=== PATIENT | male | born 1945 | race Hispanic/Latino ===

== ENCOUNTER 2017-03-17 06:41 | Day surgery (SDC) | payer MEDICARE, OTHER ==
[2017-03-17] MEDS ORDERED: NACL 0.9% 500 ML 500 ML IV SCH (08:00)
[2017-03-17 08:13] LABS: Basophils % (Auto) 0.5 % (0.0-1.8); Eosinophils % (Auto) 5.2 % (0.0-4.3); Hematocrit 40.8 % (35.5-45.6); Hemoglobin 13.9 gm/dl (11.8-15.2); Mean Corpuscular HGB Conc 34 % (32-34); Mean Corpuscular Hemoglobin 31 pg (28-32); Mean Corpuscular Volume 91 fl (84-94); Platelet Count 144 K/mm3 (140-440); Red Blood Count 4.49 M/mm3 (3.65-5.03); Red Cell Distribution Width 13.3 % (13.2-15.2); White Blood Count 5.9 K/mm3 (4.5-11.0)
[2017-03-17 08:23] LABS: Anion Gap 16 mmol/L; BUN/Creatinine Ratio 14; Blood Urea Nitrogen 10 mg/dL (9-20); Calcium 8.4 mg/dL (8.4-10.2); Carbon Dioxide 28 mmol/L (22-30); Chloride 105.5 mmol/L (98-107); Glucose 113 mg/dL (75-100); Potassium 4.8 mmol/L (3.6-5.0); Sodium 145 mmol/L (137-145)
[2017-03-17 08:26] LABS: INR 0.98 (0.87-1.13)
[2017-03-17] MEDS ORDERED: VERSED ONE (09:34)
[2017-03-17] MEDS ORDERED: HEPARIN 10,000 UNITS/10 ML ONE (09:34)
[2017-03-17] MEDS ORDERED: XYLOCAINE 2% INFILTRATI ONE (09:34)
[2017-03-17] MEDS ORDERED: SUBLIMAZE ONE (09:34)
[2017-03-17] MEDS ORDERED: HEPARIN/NS 5000 UNIT/500ML(CATH LAB) 1,000 ML IR ONE (09:34)
[2017-03-17] MEDS ORDERED: NITROGLYCERIN SYRINGE 0 ML ONE (09:48)
--- NOTE | 2017-03-17 10:42 | Discharge Summary ---
Short Stay Discharge Plan Activity: advance as tolerated Weight Bearing Status: Partial Weight Bearing Diet: low fat, low cholesterol, low salt Wound: keep clean and dry Special Instructions: no heavy lifting (3 days) Follow up with: KAM SANTIZO MD [Primary Care Provider] - 7 Days KEV GREEN MD [Staff Physician] - 7 Days
--- NOTE | 2017-03-17 10:53 | Cardiac Catherization Report ---
NAME OF PROCEDURE: Cardiac catheterization. REASON FOR PROCEDURE: Abnormal exercise ECG test. INDICATIONS: The patient is a 71-year-old man with coronary artery disease. In 2010, he underwent coronary stenting of the mid LAD. Following that, serial cardiac catheterizations in 2012 and again in 2014 demonstrated wide patency of the LAD stent. On the 2015 procedure, he received an additional stent placed to the proximal segment of a small-caliber diagonal branch of the LAD. PROCEDURE IN DETAIL: The patient was prepped and draped in a sterile fashion after informed consent. Right femoral artery was entered using Seldinger technique followed by placement of a 6-Congolese sheath. Selective left and right coronary angiography was performed using #4 right and left Tri catheters. A pigtail catheter was used for left ventricle angiography. The catheters were removed, sheath removed, and hemostasis achieved using Angio-Seal device. The patient was returned to the postprocedure unit in stable condition. There were no complications. FINDINGS: HEMODYNAMICS: Left ventricular end-diastolic pressure was 15, following coronary angiography. Ascending aortic pressure was 138/69. There was no significant pressure gradient on pullback across the aortic valve. CORONARY ANGIOGRAPHY: The left main coronary artery was angiographically normal. A stent was visible in the mid left anterior descending artery. The stented segment was widely patent with no significant restenosis. The rest of the main LAD trunk was free of significant disease. A small caliber, proximal diagonal branch of the LAD contained a stent in its proximal segment. This diagonal stent contained mild restenosis within the mid stent. Otherwise, there was diffuse mild atherosclerosis of the nonstented segments of this small-caliber diagonal branch. The proximal and mid AV groove circumflex contained mild luminal irregularities. The mid obtuse marginal branch then bifurcated into two terminal obtuse marginal branches. The inferior sub-branch contained a long 50% stenosis. The right coronary artery was dominant. This vessel contained mild narrowing in its distal AV groove segment midway between the acute margin and the posterior descending branch. The left ventricle was moderately dilated. There is moderate left ventricular systolic dysfunction, diffuse hypokinesis. Left ventricular ejection fraction estimated at 35-40%. CONCLUSION: 1. Coronary artery disease as above. 2. Widely patent mid left anterior descending artery stent. 3. Patent diagonal branch stent, with mild in-stent restenosis. 4. Otherwise, mild to moderate nonobstructive disease in the nonstented segments. 5. Moderate left ventricular systolic dysfunction, ejection fraction of 35-40%. RECOMMENDATION: 1. Medical therapy. 2. Aggressive risk factor modification. JOB# [id number] CA/NTS
[2017-03-17] MEDS ORDERED: NACL 0.9% 1000 ML 1,000 ML IV SCH (11:00)
[2017-03-17 13:35] VITALS: BP 135/74
== END 2017-03-17 14:25 | disposition home or self-care (01) ==
LOC: CATHLABREC 06:41 → CR 06:41 → CATHLABREC 14:25
PROVIDERS: ATTEND Internal Medicine Cardiovascular Disease
DX: I25.118 Atherosclerotic heart disease of native coronary artery with other forms of angina pectoris (principal); I10 Essential (primary) hypertension; K21.9 Gastro-esophageal reflux disease without esophagitis; M19.90 Unspecified osteoarthritis, unspecified site; G47.33 Obstructive sleep apnea (adult) (pediatric); Z79.01 Long term (current) use of anticoagulants; Z79.899 Other long term (current) drug therapy; Z79.82 Long term (current) use of aspirin; Z95.5 Presence of coronary angioplasty implant and graft; Z98.890 Other specified postprocedural states
CPT/HCPCS: 36415; 80048; 85025; 85610; 85730; 93005; 93010; 93458; 99156; 99157; C1760; C1894; J1644; J2250; J3010; J7040; Q9967

== ENCOUNTER 2020-06-26 07:17 | Day surgery (SDC) | payer MEDICARE, OTHER ==
[2020-06-26] MEDS ORDERED: ASPIRIN EC 325 MG TAB PO SCH (08:00)
[2020-06-26] MEDS ORDERED: CLOPIDOGREL 75 MG TAB ONE (08:32)
[2020-06-26 08:44] LABS: Basophils % (Auto) 0.6 % (0.0-1.8); Eosinophils # (Auto) 0.3 K/mm3 (0.0-0.4); Eosinophils % (Auto) 5.9 % (0.0-4.3); Hematocrit 42.2 % (35.5-45.6); Hemoglobin 14.2 gm/dl (11.8-15.2); Lymphocytes # (Auto) 1.6 K/mm3 (1.2-5.4); Lymphocytes % (Auto) 27.9 % (13.4-35.0); Mean Corpuscular HGB Conc 34 % (32-34); Mean Corpuscular Volume 92 fl (84-94); Monocytes # (Auto) 0.6 K/mm3 (0.0-0.8); Monocytes % (Auto) 10.6 % (0.0-7.3); Platelet Count 159 K/mm3 (140-440); Red Blood Count 4.58 M/mm3 (3.65-5.03); Red Cell Distribution Width 13.3 % (13.2-15.2)
[2020-06-26 08:52] LABS: BUN/Creatinine Ratio 20; Blood Urea Nitrogen 16 mg/dL (9-20); Calcium 8.5 mg/dL (8.4-10.2); Hemolysis Index 8
[2020-06-26 08:54] LABS: INR 0.91 (0.87-1.13)
[2020-06-26] MEDS ORDERED: SODIUM CHLORIDE 0.9% 500 ML 500 ML IV SCH (09:00)
[2020-06-26] MEDS ORDERED: CLOPIDOGREL 75 MG TAB PO SCH (09:00)
[2020-06-26] MEDS ORDERED: HEPARIN/NS 5000 UNIT/500ML 1,000 ML IR ONE (10:37)
[2020-06-26] MEDS ORDERED: fentaNYL 100 MCG/2 ML INJ ONE (10:38)
[2020-06-26] MEDS: HEPARIN 10,000 UNITS/10 ML VIAL ONE ×2 (10:59→11:30)
[2020-06-26] MEDS: LIDOCAINE (2%) 20 MG/1 ML VIAL 20 ML MDV INFILTRATI ONE ×2 (11:00→11:29)
[2020-06-26] MEDS: VERAPAMIL 5 MG/2 ML INJ ONE ×2 (11:00→11:30)
[2020-06-26] MEDS: MIDAZOLAM 2 MG/2 ML INJ ONE ×2 (11:00→11:26)
[2020-06-26] MEDS: NITROGLYCERIN SYRINGE 3 ML ONE ×2 (11:01→11:30)
[2020-06-26] MEDS ORDERED: traMADol 50 MG TAB PO PRN (12:03)
--- NOTE | 2020-06-26 12:08 | Discharge Summary ---
Short Stay Discharge Plan Activity: advance as tolerated Weight Bearing Status: Full Weight Bearing Diet: low cholesterol, low salt, diabetic Wound: keep clean and dry Special Instructions: no heavy lifting (3 days) Follow up with: KAM SANTIZO MD [Primary Care Provider] - 7 Days KEV GREEN MD [Staff Physician] - 7 Days
[2020-06-26] MEDS ORDERED: SODIUM CHLORIDE 0.9% 1000 ML 1,000 ML IV SCH (12:15)
--- NOTE | 2020-06-26 12:42 | Cardiac Catherization Report ---
CARDIAC CATHETERIZATION REPORT REASON FOR PROCEDURE: Abnormal thallium stress test. PROCEDURES PERFORMED: 1. Left heart catheterization. 2. Selective left and right coronary angiography. 3. Left ventricular angiography. 4. Sedation time, start 1126 hours, end 1141 hours. I was present for the entire procedure and supervised the moderate sedation protocol. The patient was prepped and draped in a sterile fashion after informed consent. The right radial cath site was prepped and draped after a negative Slick's test. The right radial artery was entered using Seldinger technique, followed by placement of a 6-[place] hydrophilic sheath. Routine radial cocktail was administered via the sheath. Selective left and right coronary angiography was performed using a #3.5 left Tri, and a #4 right Tri. The pigtail catheter was used for left ventricular angiography. The catheters were removed, sheath removed, and hemostasis achieved using a TR band. The patient was returned to the postprocedure unit in stable condition. There were no complications. FINDINGS: HEMODYNAMICS: Left ventricular end-diastolic pressure was 25, following coronary angiography. Ascending aortic pressure was 127/51. There was no significant pressure gradient on pullback across the aortic valve. CORONARY ANGIOGRAPHY: The left main coronary artery was angiographically normal. A stent was visible in the mid left anterior descending artery, after the origin of a medium to large mid diagonal branch. The mid LAD stent was widely patent, with minimal to no significant in-stent restenosis. The mid diagonal branch itself also contained a stent that was visible in its proximal segment. The diagonal branch stent contained mild restenosis with a 20% luminal mid narrowing, but otherwise patent. The LAD and diagonal branch otherwise contained diffuse mild atherosclerosis in the non-stented segments. The mid obtuse marginal branch of the circumflex artery was a large bifurcating vessel. The superior sub-branch contained a 20-30% luminal stenosis of its proximal segment. The inferior sub-branch contained a 30-50% stenosis of its proximal to mid segment. The rest of the circumflex system was otherwise free of significant disease. The right coronary artery was a large caliber, dominant vessel and free of significant disease. Left ventricular systolic function was at lower limits of normal with ejection fraction 50-55%. CONCLUSION: 1. Widely patent mid LAD stent. 2. Patent mid diagonal branch stent. 3. Otherwise, diffuse nonobstructive disease of the mid diagonal branch and mid obtuse marginal branch. 4. Well-preserved left ventricular systolic function with ejection fraction 50-55%. RECOMMENDATION: Risk factor modification and guideline-directed medical therapy. JOB# [id number] TAVIA/NTS
[2020-06-26 14:50] VITALS: BP 105/58
== END 2020-06-26 07:18 | disposition home or self-care (01) ==
LOC: CATHLABREC 07:17
PROVIDERS: ATTEND Internal Medicine Cardiovascular Disease
DX: R94.39 Abnormal result of other cardiovascular function study (principal); T82.855A Stenosis of coronary artery stent, initial encounter; I25.10 Atherosclerotic heart disease of native coronary artery without angina pectoris; E78.00 Pure hypercholesterolemia, unspecified; I10 Essential (primary) hypertension; G47.30 Sleep apnea, unspecified; K21.9 Gastro-esophageal reflux disease without esophagitis; M19.90 Unspecified osteoarthritis, unspecified site; F32.9 Major depressive disorder, single episode, unspecified; F41.9 Anxiety disorder, unspecified; Z79.899 Other long term (current) drug therapy; Z79.82 Long term (current) use of aspirin; Z98.41 Cataract extraction status, right eye; Z98.42 Cataract extraction status, left eye; Z95.5 Presence of coronary angioplasty implant and graft; Z87.442 Personal history of urinary calculi; Z82.49 Family history of ischemic heart disease and other diseases of the circulatory system; Y83.8 Other surgical procedures as the cause of abnormal reaction of the patient, or of later complication, without mention of misadventure at the time of the procedure; Y92.89 Other specified places as the place of occurrence of the external cause
CPT/HCPCS: 36415; 80048; 85025; 85610; 85730; 93005; 93458; 99156; C1894; J1644; J2250; J3010; J7040; Q9967